=== PATIENT | male | born 1990 | race Caucasian/White ===

== ENCOUNTER 2016-08-11 10:00 | Emergency (ER) | payer BC ==
[2016-08-11 12:38] VITALS: BP 118/58
== END 2016-08-11 12:38 | disposition home or self-care (01) ==
LOC: UCEAST 10:00
DX: M62.838 Other muscle spasm (principal); M54.2 Cervicalgia; J45.909 Unspecified asthma, uncomplicated
CPT/HCPCS: 99212; G0463

== ENCOUNTER 2016-12-29 13:24 | Emergency (ER) | payer BC ==
[2016-12-29] MEDS ORDERED: Ondansetron ODT TAB* 4 MG PO ONE (14:36)
--- NOTE | 2016-12-29 14:36 | UC ---
Abdominal Pain Male HPI - HPI Summary HPI Summary: 26 YEAR OLD PRESENTS WITH COMPLAINS OF NAUSEA AND VOMITING SINCE THIS MORNING. - History of Current Complaint Chief Complaint: UCGeneralIllness Stated Complaint: VOMITING Time Seen by Provider: 12/29/16 14:30 Hx Obtained From: Patient Onset/Duration: Sudden Onset Severity Initially: Moderate Severity Currently: Moderate Pain Scale Used: 0-10 Numeric - 5 Location: Diffuse - Allergies/Home Medications Allergies/Adverse Reactions: Allergies Allergy/AdvReac Type Severity Reaction Status Date / Time No Known Allergies Allergy Verified 12/29/16 13:46 PMH/Surg Hx/FS Hx/Imm Hx Previously Healthy: Yes - Surgical History Surgical History: None Surgery Procedure, Year, and Place: Hernia repair 2002 - Family History Known Family History: Positive: Hypertension, Diabetes - Social History Alcohol Use: Weekly Substance Use Type: None Smoking Status (MU): Never Smoked Tobacco Review of Systems Constitutional: Negative Skin: Negative Eyes: Negative ENT: Negative Respiratory: Negative Cardiovascular: Negative Gastrointestinal: Abdominal Pain, Vomiting, Nausea Genitourinary: Negative Motor: Negative Neurovascular: Negative Musculoskeletal: Negative Neurological: Negative Psychological: Negative All Other Systems Reviewed And Are Negative: Yes Physical Exam Triage Information Reviewed: Yes Vital Signs: Initial Vital Signs Temp 36.6 C 12/29/16 13:47 Pulse 110 12/29/16 13:47 Resp 20 12/29/16 13:47 BP 115/64 12/29/16 13:47 Pulse Ox 99 12/29/16 13:47 Eye Exam: Normal ENT Exam: Normal Dental Exam: Normal Neck exam: Normal Neck: Positive: 1 Respiratory Exam: Normal Cardiovascular Exam: Normal Abdominal Exam: Normal Musculoskeletal Exam: Normal Neurological Exam: Normal Psychological Exam: Normal Skin Exam: Normal Abd Pain Male Course/Dx - Differential Dx/Clinical Impression Provider Diagnoses: NAUSEA. VOMITTING. DIFFUSE ABDOMINAL PAIN Discharge - Discharge Plan Condition: Stable Disposition: HOME Prescriptions: Ondansetron ODT TAB* [Zofran 4 MG Odt TAB*] 4 mg PO Q8H PRN #9 tab.odt MDD 3 PRN Reason: Nausea - Refractory Patient Education Materials: Acute Nausea and Vomiting (ED) Referrals: Hakeem Mckeon MD [Primary Care Provider] -
[2016-12-29] MEDS ORDERED: NS 0.9% 1000 ML* 1,000 ML IV ONE (14:54)
[2016-12-29 16:00] VITALS: BP 114/62
== END 2016-12-29 15:56 | disposition home or self-care (01) ==
LOC: UCEAST 13:24
DX: R11.2 Nausea with vomiting, unspecified (principal); R10.9 Unspecified abdominal pain
CPT/HCPCS: 96360; 99212; A9270-GY; G0463

== ENCOUNTER 2017-10-19 20:17 | Emergency (ER) | payer BC ==
[2017-10-19] MEDS ORDERED: Glucagon* 1 MG VIAL IM ONE (20:27)
--- NOTE | 2017-10-19 20:56 | ED ---
Throat Pain/Nasal Congestion - HPI Summary HPI Summary: This is scribe Samirtyshawn Pinto documenting for attending Dr. Kaleb Romeo MD. A 27 y/o male presents to ED c/o feeling food lodge in his throat. As per triage , "Pt states that he was eating steak, and now feels as if it is lodged in throat. Pt reports prior hx. Airway is patent". Currently, other than the chief complaint, the patient's health is otherwise normal. According to the patient he was eating and when he took a sip of his drink he experienced fizzing up his throat. He noted that he went to the restroom and attempted to spit it out, however, it was unsuccessful. It was noted that this is not the patient's first time experiencing these symptoms. PMHx of endoscopy (2 years ago). - History of Current Complaint Chief Complaint: EDForeignBodyEsophag Time Seen by Provider: 10/19/17 20:27 Hx Obtained From: Patient Onset/Duration: Sudden Onset, Still Present Severity: Mild - 3/10 as per triage - Allergies/Home Medications Allergies/Adverse Reactions: Allergies Allergy/AdvReac Type Severity Reaction Status Date / Time No Known Allergies Allergy Verified 10/19/17 20:23 Home Medications: Home Medications NK [No Home Medications Reported] 10/19/17 [History Confirmed 10/19/17] PMH/Surg Hx/FS Hx/Imm Hx Endocrine/Hematology History: Denies: Hx Diabetes, Hx Thyroid Disease Cardiovascular History: Denies: Hx Hypertension Respiratory History: Reports: Hx Asthma - CHILDHOOD Denies: Hx Chronic Obstructive Pulmonary Disease (COPD) GI History: Denies: Hx Ulcer - Surgical History Surgery Procedure, Year, and Place: Hernia repair 2002 Infectious Disease History: No Infectious Disease History: Denies: Hx Clostridium Difficile, Hx Hepatitis, Hx Human Immunodeficiency Virus (HIV), Hx of Known/Suspected MRSA, Hx Shingles, Hx Tuberculosis, Hx Known/ Suspected VRE, Hx Known/Suspected VRSA, History Other Infectious Disease, Traveled Outside the [place] in Last 30 Days - Family History Known Family History: Positive: Hypertension, Diabetes - Social History Alcohol Use: Weekly Hx Substance Use: No Substance Use Type: Reports: None Hx Tobacco Use: No Smoking Status (MU): Never Smoked Tobacco Review of Systems Negative: Fever Positive: Other - POSITIVE: Feels something (steak) is lodged in his throat. All Other Systems Reviewed And Are Negative: Yes Physical Exam - Summary Physical Exam Summary: Appearance: Well-appearing, Well-nourished, lying in bed comfortably. Normal exam. Skin: Warm, dry, no obvious rash Eyes: sclera anicteric, no conjunctival pallor ENT: mucous membranes moist, pharynx appears normal Neck: Supple, nontender Respiratory: Clear to auscultation, no signs of respiratory distress Cardiovascular: Normal S1, S2. No murmurs. Normal distal pulses in tibial and radial bilaterally. Abdomen: Soft, nontender, normal active bowel sounds present Musculoskeletal: Normal, Strength/ROM Intact Neurological: A&Ox3, awake and alert, mentation is normal, speech is fluent and appropriate Psychiatric: affect is normal, does not appear anxious or depressed Triage Information Reviewed: Yes Vital Signs On Initial Exam: Initial Vitals Temp Pulse Resp BP Pulse Ox 98.3 F 74 16 143/91 96 10/19/17 20:20 10/19/17 20:20 10/19/17 20:20 10/19/17 20:20 10/19/17 20:20 Vital Signs Reviewed: Yes Diagnostics - Vital Signs Vital Signs Temp Pulse Resp BP Pulse Ox 10/19/17 20:20 98.3 F 74 16 143/91 96 - Laboratory Lab Statement: Any lab studies that have been ordered have been reviewed, and results considered in the medical decision making process. Re-Evaluation - Re-Evaluation Second Eval Re-Evaluation Time: 21:21 Change: Unchanged - Still unable to swallow water. Will need to arrange transfer to [place] for definitive care. First Eval Re-Evaluation Time: 21:07 Change: Unchanged Comment: Discussed plan with patient. Third Eval Re-Evaluation Time: 21:54 Change: Improved Comment: Patient passed the foreign body in the bathroom. EENT Course/Dx - Diagnoses Provider Diagnoses: Esophageal obstruction due to food impaction - Provider Notifications Discussed Care Of Patient With: Jian Kimble Time Discussed With Above Provider: 21:00 Instructed by Provider To: Other - No one is yard person for ED. Called Dr. Kimble , waiting for call back. Discharge - Sign-Out/Discharge Documenting (check all that apply): Patient Departure - DISCHARGE - Discharge Plan Condition: Stable Disposition: HOME Patient Education Materials: Esophageal Foreign Body (ED) Referrals: Jian Kimble MD [Medical Doctor] - Additional Instructions: Soft diet for the next 24-48 hours, until you feel back to normal. No steak or similar foods until cleared by Dr. Kimble. - Billing Disposition and Condition Condition: STABLE Disposition: Home
[2017-10-19 22:35] VITALS: BP 121/76
== END 2017-10-19 22:34 | disposition home or self-care (01) ==
LOC: ED 20:17
DX: T17.228A Food in pharynx causing other injury, initial encounter (principal); X58.XXXA Exposure to other specified factors, initial encounter; Y92.9 Unspecified place or not applicable
CPT/HCPCS: 96372; 99282; J1610

== ENCOUNTER 2018-06-18 12:42 | Day surgery (SDC) | payer BC ==
[~2018-06-18 12:42] MED LIST: Buffered Lidocaine 1% SYRIN* 1 ML/SYRINGE INTRADERM ONE; Dexamethasone IV* 4 MG/ML 1 ML (4 MG) IV SLOW PU ONE; Famotidine IV* 10 MG/ML 2 ML (20 mg) IV ONE; Lactated Ringers 1000 ML Bag* 1,000 ML IV SCH
[2018-06-18] MEDS ORDERED: Famotidine IV* 10 MG/ML 2 ML (20 mg) ONE (13:31)
[2018-06-18] MEDS ORDERED: Dexamethasone IV* 4 MG/ML 1 ML (4 MG) ONE (13:31)
[2018-06-18] MEDS ORDERED: fentaNYL* 50 MCG/ML 2 ML VIAL (100 MCG VIAL) IV PRN (14:08)
[2018-06-18] MEDS ORDERED: DiMENhydriNATE IV* 50 MG/ML VIAL IV PUSH PRN (14:08)
[2018-06-18] MEDS ORDERED: Naloxone* 0.4 MG/ML 1 ML VIAL IV PRN (14:08)
[2018-06-18] MEDS ORDERED: Ondansetron INJ* 2 MG/ML VIAL ONE (14:11)
[2018-06-18] MEDS ORDERED: fentaNYL* 50 MCG/ML 2 ML VIAL (100 MCG VIAL) ONE (14:11)
[2018-06-18] MEDS ORDERED: Propofol* 10 MG/ML 20 ML BTL ONE (14:11)
[2018-06-18] MEDS ORDERED: Ketorolac INJ* 30 MG/ML 1 ML VIAL ONE (14:11)
[2018-06-18] MEDS ORDERED: Midazolam* 1 MG/ML 2 ML VIAL (2 MG) ONE (14:11)
[2018-06-18] MEDS ORDERED: Lidocaine 2% PF * 5 ML VIAL ONE (14:12)
[2018-06-18] MEDS ORDERED: Oxymetazoline 0.05% NASAL SPR* 15 ML BTL ONE (14:49)
[2018-06-18] MEDS ORDERED: Lidocaine 2% EPI 1:200000 MPF*10-20 ML VIAL ONE (14:49)
[2018-06-18 16:39] VITALS: BP 130/77
--- NOTE | 2018-06-18 22:09 | OP ---
DATE OF OPERATION: 06/18/18 - SDS DATE OF : 89 SURGEON: Satnam Hendrickson MD PRE-OP DIAGNOSES: 1. Deviated nasal septum. 2. Hypertrophy of turbinates. 3. Nasal dyspnea. POST-OP DIAGNOSES: 1. Deviated nasal septum. 2. Hypertrophy of turbinates. 3. Nasal dyspnea. OPERATIVE PROCEDURES: Septoplasty, SMR turbinates. BRIEF HISTORY: This is a 27-year-old with significant history of nasal dyspnea with symptoms of obstruction, specifically on the right side and markedly deviated septum. He had failed medical management including topical nasal steroids. DESCRIPTION OF PROCEDURE: The patient was taken to the operating room, general anesthetic given, the patient was intubated with LMA. Nose was decongested with Afrin placed pledgets. Subsequently 2% lidocaine with epinephrine was infiltrated in the mucosa on both sides. Quadrangular cartilage was disarticulated along the vomer-ethmoidal complex posteriorly and along the maxillary crest inferiorly. Portion of the maxillary crest which was quite significant deviated into nasal cavity was resected out. Quadrangular cartilage was then swung in the midline, secured with multiple mattress sutures of chromic. Subsequently Roverto splint was applied which was secured with 2-0 silk. We then turned our attention to inferior turbinates. A small incision was made in the inferior turbinate mucosa. Submucosal elevation was carried out. Cauterization of the inferior turbinate bone and mucosa was then carried out in small amounts all the way along the length of the inferior turbinate. The patient was then awakened, extubated and sent to the recovery room in stable condition. Instrument and sponge counts were correct. Blood loss minimal. [id number]/[facility] #: [id number] [facility]
== END 2018-06-18 17:05 | disposition home or self-care (01) ==
LOC: OR 12:42
PROVIDERS: ATTEND Otolaryngology
DX: J34.2 Deviated nasal septum (principal); J34.3 Hypertrophy of nasal turbinates
CPT/HCPCS: A9270-GY; J1100; J1885; J2250; J2405; J2704; J3010